=== PATIENT | female | born 1965 | race Two or more races ===

== ENCOUNTER 2021-01-14 20:30 | Emergency (ER) | payer OTHER ==
[~2021-01-14] VITALS: Ht 177.8 cm; Wt 99.8 kg
[2021-01-14 20:51] VITALS: BP 165/94
[2021-01-14] MEDS ORDERED: CEPH500C2 PO (20:59)
--- NOTE | 2021-01-14 21:53 | NUR ---
Patient discharged to home in stable condition. Written and verbal after care instructions given. Patient verbalizes understanding of instruction. Pt ambulatory with a steady gait
== END 2021-01-14 21:55 | disposition home or self-care (01) ==
LOC: ER 20:47
DX: L03.115 Cellulitis of right lower limb (principal); I10 Essential (primary) hypertension

== ENCOUNTER 2023-07-02 19:54 | Emergency (ER) | payer OTHER ==
[~2023-07-02] VITALS: Ht 177.8 cm; Wt 99.8 kg
[~2023-07-02 19:54] MED LIST: CEPH500C2 PO
[2023-07-02 21:31] VITALS: BP 162/113; TEMP 98.1
[2023-07-02] MEDS ORDERED: LIDOCAINE 5% (PATCH) 1 EA PATCH TP ONE ×2 (21:56→22:00)
[2023-07-02] MEDS ORDERED: CYCL5TAB PO (21:57)
[2023-07-02] MEDS ORDERED: ACETAMINOPHEN ES 500 MG TABLET ONE (21:57)
[2023-07-02] MEDS ORDERED: IBUP-1955 PO (21:57)
[2023-07-02] MEDS ORDERED: ACET-2605 PO (21:57)
[2023-07-02] MEDS ORDERED: ACETAMINOPHEN ES 500 MG TABLET PO ONE (22:00)
[2023-07-02 22:05] VITALS: O2SAT 98
== END 2023-07-02 22:06 | disposition home or self-care (01) ==
LOC: ER 19:59
DX: M54.50 Low back pain, unspecified (principal); I10 Essential (primary) hypertension

== ENCOUNTER 2024-04-13 21:06 | Emergency (ER) | payer OTHER ==
[~2024-04-13] VITALS: Ht 177.8 cm; Wt 102.1 kg
[~2024-04-13 21:06] MED LIST changes: +ACET-2605 PO; +CYCL5TAB PO; +IBUP-1955 PO
[2024-04-13 21:47] VITALS: BP 162/101; TEMP 99.2; O2SAT 98
[2024-04-13] MEDS ORDERED: GABA-532 PO (21:59)
== END 2024-04-13 22:14 | disposition home or self-care (01) ==
LOC: ER 21:08
DX: M25.532 Pain in left wrist (principal); I10 Essential (primary) hypertension